=== PATIENT | male | born 1985 | race Caucasian/White ===

== ENCOUNTER 2017-04-29 17:25 | Emergency (ER) | payer MEDICAID ==
[~2017-04-29] VITALS: Ht 165.1 cm; Wt 93.0 kg
[2017-04-29 19:44] VITALS: BP 121/71
[2017-04-29 20:16] LABS: CLARITY URINE CLEAR (CLEAR); COLOR URINE YELLOW (YELLOW); KETONES URINE NEGATIVE (NEGATIVE); LEUKOCYTE ESTERASE URINE NEGATIVE (NEGATIVE); NITRITE URINE NEGATIVE (NEGATIVE); OCCULT BLOOD URINE NEGATIVE (NEGATIVE); PROTEIN URINE NEGATIVE (NEGATIVE); SPECIFIC GRAVITY URINE 1.011 (1.005-1.030); UROBILINOGEN URINE 0.2 E.U./dL (0.2-1.0)
== END 2017-04-29 20:57 | disposition home or self-care (01) ==
LOC: ER 18:46
DX: R30.0 Dysuria (principal)
CPT/HCPCS: 81003; 99283